=== PATIENT | male | born 1950 | race Caucasian/White ===

== ENCOUNTER → 2016-09-09 | Day surgery (SDC) | payer MEDICARE ==
[~2016-09-09] VITALS: Ht 157.5 cm; Wt 59.9 kg
[~2016-09-09] MED LIST: ASPI-973 PO; LISI-567 PO; MULT-1018 PO; SIMV40TA5 PO; Sodium Chloride LOK Flush 10 mL Syringe IV PRN; TOP100 PO; UBID50CA25 PO; fentaNYL-PF 50 mCg/mL 2 mL Inj IVPUSH PRN
[2016-09-09 11:26] VITALS: BP 156/90; PULSE 75; RESP 14; O2SAT 100
[2016-09-09] MEDS: 0.9% Sodium Chloride 1,000 ML IV SCH ×2 (12:06→13:08)
[2016-09-09 12:46] VITALS: BP 117/66; PULSE 53; RESP 14; O2SAT 99
[2016-09-09 12:57] VITALS: BP 105/64; PULSE 57; RESP 14; O2SAT 98
[2016-09-09 13:05] VITALS: BP 134/74; PULSE 57; RESP 14; O2SAT 98
--- NOTE | 2016-09-09 23:47 | ENDO ---
[address] [address] ENDOSCOPY PROCEDURE PATIENT: MOLLY REYES : 1950 MR#: [id number] ADMIT: 09/09/2016 JOB ID: [id number] DATE OF PROCEDURE: 09/09/2016 PRIMARY PROVIDER: RAGINI Chaidez. PROCEDURE: Colonoscopy with hot snare polypectomy and tattoo placement. INDICATIONS: A 66-year-old male with a personal history of adenomatous colon polyp, returning for surveillance. EQUIPMENT: [employer]. SEDATION: 1. Versed 4 mg. 2. Fentanyl 100 mcg. COMPLICATIONS: None identified. BOWEL PREPARATION: Fair, adequate exam. PROCEDURE INFORMATION: After the risks and benefits were explained, written and verbal informed consent was obtained. The patient was brought into the endoscopy suite and placed into the left lateral decubitus position. Sedation was achieved using the above-stated medications with the addition of oxygen via nasal cannula. A digital rectal examination was accomplished. No significant pathology appreciated. The scope was introduced into the rectum and advanced to the cecum as identified by the appendiceal orifice and ileocecal valve. The scope was slowly withdrawn to carefully examine the mucosa for any defects or lesions. Retroflexed views were accomplished in the rectum. The colon was decompressed. The scope was removed from the patient who tolerated the procedure well. FINDINGS: In the cecum, there was an approximately 14-15 mm sessile spreading polyp quite subtle, but successfully removed by way of jumbo hot snare polypectomy. There was a second large, perhaps 13-14 mm, sessile polyp removed by way of piecemeal polypectomy approximately 40 cm from the anal verge. This one was a was a little more challenging and because of the piecemeal nature I elected to put an approximately 0.25 cc Dia ink tattoo in place just distal to the polyp. Photographs were taken for the electronic record. Retroflexed views of the rectum disclosed moderate internal hemorrhoids with hypertrophied anal papillae. ENDOSCOPIC DIAGNOSES: 1. Colon polyps. 2. Hemorrhoids. RECOMMENDATIONS: 1. Await histopathology. 2. Repeat colonoscopy in three years.
--- NOTE | 2016-09-11 11:25 | PATH ---
SURGICAL PATHOLOGY Attending Physician:Williams Cabrera CASE STATUS: Signed Out PATIENT NAME: MOLLY REYES PID: [id number] : 1950 DATE COLLECTED:09/09/2016 21:03 SPECIMEN: 1: Colon, Biopsy 2: Colon, Biopsy CLINICAL HISTORY: HISTORY COLON POLYPS 1). CECAL POLYP X1 2). SIGMOID POLYP FINAL DIAGNOSIS: 1.CECAL POLYP: TUBULAR ADENOMA INVOLVING MULTIPLE BIOPSY FRAGMENTS. 2.SIGMOID COLON POLYP: CHANGES CONSISTENT WITH TUBULAR ADENOMA INVOLVING TWO BIOPSY FRAGMENTS. ICD10 CODE D12.0 GROSS DESCRIPTION: The specimen is received in two formalin filled containers labeled with the patient's name. 1). The specimen is sublabeled "cecal polyp x1" and consists of multiple portions of tissue which aggregate to 0.4 x 0.4 x 0.3 CM. The specimen is entirely submitted in cassette 1A. 2). The specimen is sublabeled "sigmoid polyp" and consists of 3 portions of tissue which aggregate to 0.4 x 0.4 x 0.3 CM. The specimen is entirely submitted in cassette 2A. 09/09/2016 [facility] MICRO DESCRIPTION: See diagnosis. ICD-9 CODES: CPT CODES: 1: 65791 2: 79722 Electronically Signed Out Robby Bartlett MD [facility] Pathology [facility] [address], [place] [address] Technical component performed at [facility], [facility] [address], [place], [address]
== END | disposition home or self-care (01) ==
LOC: END 00:28 → MERGE 11:14 → END 11:14
PROVIDERS: ATTEND Internal Medicine Gastroenterology
DX: Z12.11 Encounter for screening for malignant neoplasm of colon (principal); Z86.010 Personal history of colon polyps; K63.5 Polyp of colon; K64.8 Other hemorrhoids; I10 Essential (primary) hypertension; I25.10 Atherosclerotic heart disease of native coronary artery without angina pectoris; Z95.0 Presence of cardiac pacemaker
CPT/HCPCS: 45381; 45385; 88305; 99153; G0500; J2250; J3010; J7030